=== PATIENT | male | born 1950 | race Caucasian/White ===

== ENCOUNTER 2022-07-26 06:28 | Day surgery (SDC) | payer MEDICARE, OTHER ==
[2022-07-20 14:15] VITALS: BMI 24.1
[2022-07-26] MEDS ORDERED: Lidocaine 2% MPF 10 ML AMP (For Epidural Use) ONE (08:48)
[2022-07-26] MEDS ORDERED: PROPOFOL 0 ML ONE (08:48)
[2022-07-26] MEDS ORDERED: PROPOFOL 40 ML ONE (08:55)
== END 2022-07-26 09:50 | disposition home or self-care (01) ==
LOC: CSHSDC 06:28
PROVIDERS: ATTEND Internal Medicine Gastroenterology
PROC: 0DJD8ZZ Inspection of Lower Intestinal Tract, Via Natural or Artificial Opening Endoscopic (ICD-10-PCS; principal; 2022-07-26)
DX: Z12.11 Encounter for screening for malignant neoplasm of colon (principal); K57.30 Diverticulosis of large intestine without perforation or abscess without bleeding; K64.9 Unspecified hemorrhoids; I10 Essential (primary) hypertension; E78.5 Hyperlipidemia, unspecified; Z86.010 Personal history of colon polyps
CPT/HCPCS: J2704